=== PATIENT | female | born 1985 | race Caucasian/White ===

== ENCOUNTER 2024-11-14 21:14 | Emergency (ER) | payer MEDICAID, SELFPAY ==
--- OUTSIDE RECORDS SUMMARY | 2024-06-03 04:40 | XMS_ITS ---
Author Organization [facility] [employer] Address [address] [place] [address] Care Team Providers Care Lead Vulcanizing Operator Name Role Phone Domonique Ramirez Primary Care Provider [phone] Kaushal Bolton [phone] REASON FOR VISIT Discuss lab results Encounters Encounter Location Date Provider Diagnosis [address] [address] 06/03/2024 Domonique Ramirez Plan Of Treatment No Information Progress Notes * Kishor CARLOS RDOB:1985 (39 yo F)Acc No.[id number]:06/03/2024 UNLOCKED PROGRESS NOTE Progress Notes Patient: Levi Alexanderisaías Chacon Provider: RYAN Thompson :1985 A ge:38 Y S ex:Female Date:06/03/2024 Address:[address] [facility] Subjective: * Chief Complaints: * D iscuss lab results Plan: * Preventive Medicine: [facility] Preventive/Chronic Due : D iabetes: Due For Hemoglobin A1C: Y es Due for Eye Exam: Y es * Electronic signature of RYAN Ray on 11/14/2024 at 09:51 PM CDT Sign off status: Pending Visit Status: R /S (Rescheduled) * Provider: RYAN Thompson Date: 0 06/03/2024 Generated for Natan quinteros/Anca/Nicola on: 0 11/14/2024 09:51 PM CDT
--- OUTSIDE RECORDS SUMMARY | 2024-06-08 09:00 | XMS_ITS ---
Author Organization [facility] Address [address] [facility] [address] [place] [address] Care Team Providers Care Cardiovascular Tech Name Role Phone AshleyAmbikaa Primary Care Provider [phone] Kaushal Oliver [phone] REASON FOR VISIT review labs Medications Medication SIG (Take, Route, Frequency, Duration) Notes Start Date End Date Status Vitamin D 50 MCG (1999) Capsule 1 capsule Orally Once a day; Duration: 30 day(s) 04/04/2020 Not-Taking Vivitrol 380 MG Suspension Reconstituted Inject Intramuscular one time monthly at providers office; Duration: 28 days Clare Ramos LPN 01/07/2023 04:41:34 PM >PLEASE DELIVER TO [facility] ON Sat01-16-[address]PT WITH DR OLIVER ON Saturday01/22/23 XB# [id number] 01/07/2023 Not-Taking Folic Acid 1 MG Tablet 1 tablet Orally Once a day; Duration: 30 days 11/27/2023 Active Iron 325 (65 Fe) MG Tablet 1 tablet Orally Daily; Duration: 30 days 11/27/2023 Active Vitamin B-12 1,000 mcg Vial 1000 mcg - dispense 1 vial IM Monthly; Duration: 30 days 12/04/2017 Active Naloxone HCl 4 MG/10ML Solution as directed Injection x1 PRN 12/11/2022 Not-Taking Naltrexone HCl 50 MG Tablet 1 tablet Orally administered at in office appt with Dr Oliver on 01/22/23; Duration: 1 days Clare Ramos LPN 01/07/2023 04:41:34 PM >PLEASE DELIVER TO [facility] ON Sat01-16-[address]PT WITH DR OLIVER ON Saturday01/22/23 XB# [id number] 01/07/2023 Not-Taking Ondansetron 4 MG Tablet Disintegrating 1 tablet on the tongue and allow to dissolve Orally Once a day Not-Taking Robaxin 500 MG Tablet 1 tablet Orally every 8 hours as needed; Duration: 30 days 08/19/2023 Not-Taking Vitamin D 50 MCG (1999 UT) Tablet 1 tablet Orally Once a day; Duration: 30 days 05/14/2022 Not-Taking busPIRone HCl 7.5 MG Tablet 1 tablet Orally Twice a day; Duration: 30 days 09/13/2022 Not-Taking Cyanocobalamin 1000 MCG/ML Solution INJECT 1 ML INTRAMUSCULARLY ONCE EVERY MONTH; Duration: 28 Not-Taking Doxepin HCl 25 MG Capsule 2 capsules Orally At bedtime; Duration: 30 days 09/13/2022 Not-Taking Gabapentin 300 MG Capsule 1 capsule Orally three times daily for 7 days 12/23/2022 Not-Taking hydrOXYzine Pamoate 25 MG Capsule 1 capsule Orally every 8 hours on as needed basis; Duration: 30 days 09/13/2022 Not-Taking Methocarbamol 500 MG Tablet TAKE 1 TABLET BY MOUTH ONCE DAILY AT BEDTIME DIRECTED FOR MUSCLE RELAXATION PRN; Duration: 30 days Active Wadley & Syringes 1 Miscellaneous 1 needle and syringe for IM injection for vitamin b12 injections once a month; Duration: 30 days 12/20/2017 Active Suboxone 2-0.5 MG Film 1 film under the tongue and allow to dissolve Sublingual Once a day Active Buprenorphine HCl-Naloxone HCl 8-2 MG Film 1 film under the tongue and allow to dissolve Sublingual Once a day Held since 12/16/22 02/28/2023 Not-Taking Buprenorphine HCl-Naloxone HCl 8-2 MG Film 1 film under the tongue and allow to dissolve Sublingual Once a day 03/14/2023 Not-Taking BD Luer-Lashonda Syringe 25G X 5/8 3 ML Miscellaneous USE DIRECTED WITH B-12 INJECTION MONTHLY; Duration: 29 days Active Brixadi (Weekly) 8 MG/0.16ML Solution Prefilled Syringe 0.16 mL Subcutaneous Ac tive cloNIDine HCl 0.1 MG Tablet 1 tablet Orally Once a day Active hydrOXYzine HCl 25 MG Tablet 1 tablet as needed Orally Once a day Active lamoTRIgine 100 MG Tablet 2 tablets Orally Twice a day; Duration: 30 day(s) Active ARIPiprazole 15 MG Tablet 1 tablet Orally Once a day; Duration: 30 day(s) Active Social History Social History [facility] Comprehensive Health As sessment Social Info Question Answer Notes Household/Enviromental Risk Factors: Any Patient/Famil y Concerns : No Workplace Health Risk Factors : None Do you have any social/cultural characteristics? Socia l Characteristics: Yes Highest level of education: Associates Concerns with daily living situations: None Support from family/friends: Yes Participation in community activities: No Cultural Characteristics: No Communication Barriers Are: None Assessment of Health Literacy Understands how to take medication Yes Understands risks/side effects of medication Yes Understands Diagnosis and Treatment Plan Yes Is the patient able to afford their medication Y es Does patient have an Advanced Directive? No Date Last Health Assessment Completed : 05/09/19 Additional Details Category Social Info Options Details Self-Management Pap Testing No Patient had a hysterectomy Laboratory Testing Yes Covid-19 Vaccine Yes Pfizer-BioNTech Dose 1 Admnistered, Pfizer BioNTech Dose 2 Administred Encounters Encounter Location Date Provider Diagnosis [address] [address] 06/08/2024 Domonique Ramirez Plan Of Treatment No Information Progress Notes * Kishor CARLOS RDOB:1985 (39 yo F)Acc No.[id number]:06/08/2024 UNLOCKED PROGRESS NOTE Progress Notes Patient: Kishor Alexander Provider: RYAN Thompson :1985 A ge:38 Y S ex:Female Date:06/08/2024 Address:[address] [place], [place] [id number] Subjective: * Chief Complaints: * R eview labs * Social History: [facility] Comprehensive Health Assessment : D o you have any social/cultural characteristics? S ocial Characteristics: Y es H ighest level of education: A ssociates C oncerns with daily living situations: N one S upport from family/friends: Y es P articipation in community activities: N o C ultural Characteristics: N o C ommunication Barriers Are: N one Household/Enviromental Risk Factors A ny Patient/Family Concerns : N o W orkplace Health Risk Factors : N one Assessment of Health Literacy U nderstands how to take medication Y es U nderstands risks/side effects of medication?Yes U nderstands Diagnosis and Treatment Plan Y es I s the patient able to afford their medication Y es D oes patient have an Advanced Directive? N o D ate Last Health Assessment Completed : 0 05/08/2022 S elf-Management: C ovid-19 Vaccine: Yes, Pfizer-BioNTech Dose 1 Admnistered, Pfizer BioNTech Dose 2 Administred. Laboratory Testing: Yes. Pap Testing: No, Patient had a hysterectomy. * Medications: T akingARIPiprazole 15 MG Tablet 1 tablet Orally Once a day BD Luer-Lashonda Syringe 25G X 5/8 3 ML Miscellaneous USE DIRECTED WITH B-12 INJECTION MONTHLY Brixadi (Weekly) 8 MG/0.16ML Solution Prefilled Syringe 0.16 mL Subcutaneous cloNIDine HCl 0.1 MG Tablet 1 tablet Orally Once a day Folic Acid 1 MG Tablet 1 tablet Orally Once a day hydrOXYzine HCl 25 MG Tablet 1 tablet as needed Orally Once a day Iron 325 (65 Fe) MG Tablet 1 tablet Orally Daily lamoTRIgine 100 MG Tablet 2 tablets Orally Twice a day Methocarbamol 500 MG Tablet TAKE 1 TABLET BY MOUTH ONCE DAILY AT BEDTIME DIRECTED FOR MUSCLE RELAXATION PRN Wadley & Syringes 1 Miscellaneous 1 needle and syringe for IM injection for vitamin b12 injections once a month Suboxone 2-0.5 MG Film 1 film under the tongue and allow to dissolve Sublingual Once a day Vitamin B-12 1,000 mcg Vial 1000 mcg - dispense 1 vial IM Monthly Taking ARIPiprazole 15 MG Tablet 1 tablet Orally Once a day Taking BD Luer-Lashonda Syringe 25G X 5/8 3 ML Miscellaneous USE DIRECTED WITH B-12 INJECTION MONTHLY Taking Brixadi (Weekly) 8 MG/0.16ML Solution Prefilled Syringe 0.16 mL Subcutaneous Taking cloNIDine HCl 0.1 MG Tablet 1 tablet Orally Once a day Taking Folic Acid 1 MG Tablet 1 tablet Orally Once a day Taking hydrOXYzine HCl 25 MG Tablet 1 tablet as needed Orally Once a day Taking Iron 325 (65 Fe) MG Tablet 1 tablet Orally Daily Taking lamoTRIgine 100 MG Tablet 2 tablets Orally Twice a day Taking Methocarbamol 500 MG Tablet TAKE 1 TABLET BY MOUTH ONCE DAILY AT BEDTIME DIRECTED FOR MUSCLE RELAXATION PRN Taking Wadley & Syringes 1 Miscellaneous 1 needle and syringe for IM injection for vitamin b12 injections once a month Taking Suboxone 2-0.5 MG Film 1 film under the tongue and allow to dissolve Sublingual Once a day Taking Vitamin B-12 1,000 mcg Vial 1000 mcg - dispense 1 vial IM Monthly Not-TakingBuprenorphine HCl-Naloxone HCl 8-2 MG Film 1 film under the tongue and allow to dissolve Sublingual Once a day , Notes to Pharmacist: Held since 12/16/22Buprenorphine HCl-Naloxone HCl 8-2 MG Film 1 film under the tongue and allow to dissolve Sublingual Once a day busPIRone HCl 7.5 MG Tablet 1 tablet Orally Twice a day Cyanocobalamin 1000 MCG/ML Solution INJECT 1 ML INTRAMUSCULARLY ONCE EVERY MONTH Doxepin HCl 25 MG Capsule 2 capsules Orally At bedtime Gabapentin 300 MG Capsule 1 capsule Orally three times daily for 7 days hydrOXYzine Pamoate 25 MG Capsule 1 capsule Orally every 8 hours on as needed basis Naloxone HCl 4 MG/10ML Solution as directed Injection x1 PRN Naltrexone HCl 50 MG Tablet 1 tablet Orally administered at in office appt with Dr Oliver on 01/22/23 , Notes to Pharmacist: Clare Ramos LPN 01/07/2023 04:41:34 PM >PLEASE DELIVER TO [facility] ON Sat01-16-[address]PT WITH DR OLIVER ON Saturday01/22/23XB# [id number] 4 MG Tablet Disintegrating 1 tablet on the tongue and allow to dissolve Orally Once a day Robaxin 500 MG Tablet 1 tablet Orally every 8 hours as needed Vitamin D 50 MCG (2000 UT) Tablet 1 tablet Orally Once a day Vitamin D 50 MCG (2000 UT) Capsule 1 capsule Orally Once a day Vivitrol 380 MG Suspension Reconstituted Inject Intramuscular one time monthly at providers office , Notes to Pharmacist: Clare Ramos LPN 01/07/2023 04:41:34 PM >PLEASE DELIVER TO [facility] ON Sat01-16-[address]PT WITH [address] OLIVER ON Saturday01/22/23XB# [id number] Buprenorphine HCl-Naloxone HCl 8-2 MG Film 1 film under the tongue and allow to dissolve Sublingual Once a day , Notes to Pharmacist: Held since 12/16/22Not-Taking Buprenorphine HCl-Naloxone HCl 8-2 MG Film 1 film under the tongue and allow to dissolve Sublingual Once a day Not-Taking busPIRone HCl 7.5 MG Tablet 1 tablet Orally Twice a day Not-Taking Cyanocobalamin 1000 MCG/ML Solution INJECT 1 ML INTRAMUSCULARLY ONCE EVERY MONTH Not-Taking Doxepin HCl 25 MG Capsule 2 capsules Orally At bedtime Not-Taking Gabapentin 300 MG Capsule 1 capsule Orally three times daily for 7 days Not-Taking hydrOXYzine Pamoate 25 MG Capsule 1 capsule Orally every 8 hours on as needed basis Not-Taking Naloxone HCl 4 MG/10ML Solution as directed Injection x1 PRN Not-Taking Naltrexone HCl 50 MG Tablet 1 tablet Orally administered at in office appt with Dr Oliver on 01/22/23 , Notes to Pharmacist: Clare Ramos LPN 01/07/2023 04:41:34 PM >PLEASE DELIVER TO [facility] ON Sat01-16-[address]PT WITH DR OLIVER ON Saturday01/22/23XB# [id number] Ondansetron 4 MG Tablet Disintegrating 1 tablet on the tongue and allow to dissolve Orally Once a day Not-Taking Robaxin 500 MG Tablet 1 tablet Orally every 8 hours as needed Not- Taking Vitamin D 50 MCG (2000 UT) Tablet 1 tablet Orally Once a day Not-Taking Vitamin D 50 MCG (2000 UT) Capsule 1 capsule Orally Once a day Not-Taking Vivitrol 380 MG Suspension Reconstituted Inject Intramuscular one time monthly at providers office , Notes to Pharmacist: Clare Ramos LPN 01/07/2023 04:41:34 PM >PLEASE DELIVER TO [facility] ON Sat01-16-[address] APPT WITH DR OLIVER ON Saturday01/22/23XB# [id number] Plan: * Preventive Medicine: Counseling: C are goal follow-up plan: Exercise Counseling Provided- Y es Nutrition/Dietary Counseling provided?Yes BMI management provided Y es Above Normal BMI Follow-up G iving encouragement to exercise Oral health education provided : Y es Date : * Electronic signature of RYAN Ray on 11/14/2024 at 09:51 PM CDT Sign off status: Pending Visit Status: N /S (No-Show) * Provider: RYAN Thompson Date: 0 06/08/2024 Generated for Natan Warner on: 0 11/14/2024 09:51 PM CDT
--- OUTSIDE RECORDS SUMMARY | 2024-07-31 08:20 | XMS_ITS ---
Author Organization [facility] Address [address] [place] [address] Care Team Providers Care Interior Horticulturist Name Role Phone Domonique Ramirez Primary Care Provider Kaushal Bolton Unavailable [phone] Isabella Busby Unavailable [phone] REASON FOR VISIT med refFortino olson pt Encounters Encounter Location Date Provider Diagnosis [address] [address] 07/31/2024 Isabella Busby Plan Of Treatment No Information Progress Notes * Kishor CARLOS RDOB:1985 (39 yo F)Acc No.[id number]:07/31/2024 UNLOCKED PROGRESS NOTE Progress Notes Patient: Kishor Alexander Provider: Amanda Busby :1985 A ge:38 Y S ex:Female Date:07/31/2024 Address:[address] [facility] Pcp:Domonique Ramirez Subjective: * Chief Complaints: * m ed refillsFortino pt * Electronic signature of RYAN Romano on 11/14/2024 at 09:50 PM CDT Sign off status: Pending Visit Status: N /S (No-Show) * Provider: Amanda Busby Date: 0 07/31/2024 Generated for Natan quinteros/Anca/Marinaitting on: 0 11/14/2024 09:50 PM CDT
--- OUTSIDE RECORDS SUMMARY | 2024-08-05 04:00 | XMS_ITS ---
Author Organization [facility] [employer] Address [address] [facility] [place] [address] Care Team Providers Care Pile Driving Technician Name Role Phone Domonique Ramirez Primary Care Provider Kaushal Oliver [phone] REASON FOR VISIT Patient presents for a f/up , discuss labs, B12 shot Medications Medication SIG (Take, Route, Frequency, Duration) Notes Start Date End Date Status Vitamin D 50 MCG (1999) Capsule 1 capsule Orally Once a day; Duration: 30 day(s) 04/04/2020 Not-Taking Vivitrol 380 MG Suspension Reconstituted Inject Intramuscular one time monthly at providers office; Duration: 28 days Clare Ramos LPN 01/07/2023 04:41:34 PM >PLEASE DELIVER TO ER ON Sat01-16-23 FOR UPCOMING APPT WITH DR OLIVER ON Saturday01/22/23 XB# [id number] 01/07/2023 Not-Taking Folic Acid 1 MG Tablet 1 tablet Orally Once a day; Duration: 30 days 11/27/2023 Active Iron 325 (65 Fe) MG Tablet 1 tablet Orally Daily; Duration: 30 days 11/27/2023 Active Vitamin B-12 1,000 mcg Vial 1000 mcg - dispense 1 vial IM Monthly; Duration: 30 days 12/04/2017 Active Naltrexone HCl 50 MG Tablet 1 tablet Orally administered at in office appt with Dr Oliver on 01/22/23; Duration: 1 days Clare Ramos LPN 01/07/2023 04:41:34 PM >PLEASE DELIVER TO [facility] ON Sat01-16-[address]OM[address] APPT WITH DR OLIVER ON Saturday01/22/23 XB# [id number] 01/07/2023 Not-Taking Ondansetron 4 MG Tablet Disintegrating 1 tablet on the tongue and allow to dissolve Orally Once a day Not-Taking Robaxin 500 MG Tablet 1 tablet Orally every 8 hours as needed; Duration: 30 days 08/19/2023 Not-Taking Vitamin D 50 MCG (2000 UT) Tablet 1 tablet Orally Once a day; Duration: 30 days 05/14/2022 Not-Taking Naloxone HCl 4 MG/10ML Solution as directed Injection x1 PRN 12/11/2022 Not-Taking busPIRone HCl 7.5 MG Tablet 1 [...] MUSCLE RELAXATION PRN; Duration: 30 days Active Shacklefords & Syringes 1 Miscellaneous 1 needle and [...] 30 day(s) Active Social History Social History Additional Details Category Social Info Options Details Self-Management Pap Testing No Patient had a hysterectomy Laboratory Testing Yes Encounters Encounter Location Date Provider Diagnosis [address] [facility] [place] [address] 08/05/2024 Domonique Ramirez Plan Of Treatment No Information Progress Notes * Kishor CARLOS RDOB:1985 (39 yo F)Acc No.[id number]:08/05/2024 UNLOCKED PROGRESS NOTE Progress Notes Patient: Kishor Alexander Provider: RYAN Thompson :1985 A ge:38 Y S ex:Female Date:08/05/2024 Address:[address] [place], [place] [id number] Subjective: * Chief Complaints: * P atient presents for a f/up , discuss labs, B12 shot * Social History: S elf-Management: L aboratory Testing: Yes. Pap Testing: No, Patient had [...] AT BEDTIME DIRECTED FOR MUSCLE RELAXATION PRN Shacklefords & Syringes 1 Miscellaneous 1 needle and [...] BEDTIME DIRECTED FOR MUSCLE RELAXATION PRN Taking Shacklefords & Syringes 1 Miscellaneous 1 needle and [...] LPN 01/07/2023 04:41:34 PM >PLEASE DELIVER TO [facility] ON Sat01-16-[address] APPT WITH DR OLIVER ON Saturday01/22/23XB# [id number] 4 MG Tablet Disintegrating 1 tablet on the tongue and allow to dissolve Orally Once a day Robaxin 500 MG Tablet 1 tablet Orally every 8 hours as needed Vitamin D 50 MCG (1999 UT) Tablet 1 tablet Orally Once a day Vitamin D 50 MCG (1999 UT) Capsule 1 capsule Orally Once a day Vivitrol 380 MG Suspension Reconstituted Inject Intramuscular one time monthly at providers office , Notes to Pharmacist: Clare Ramos LPN 01/07/2023 04:41:34 PM >PLEASE DELIVER TO [facility] ON Sat01-16-[address] APPT WITH [address] OLIVER ON Saturday01/22/23XB# [id number] Buprenorphine HCl-Naloxone HCl 8-2 MG Film 1 [...] LPN 01/07/2023 04:41:34 PM >PLEASE DELIVER TO [facility] ON Sat01-16-[address] APPT WITH [address] OLIVER ON Saturday01/22/23XB# [id number] Ondansetron 4 MG Tablet Disintegrating 1 tablet on the tongue and allow to dissolve Orally Once a day Not-Taking Robaxin 500 MG Tablet 1 tablet Orally every 8 hours as needed Not- Taking Vitamin D 50 MCG (2000 UT) Tablet 1 tablet Orally Once a day Not-Taking Vitamin D 50 MCG (1999 UT) Capsule 1 capsule Orally Once a day Not-Taking Vivitrol 380 MG Suspension Reconstituted Inject Intramuscular one time monthly at providers office , Notes to Pharmacist: Clare Ramos LPN 01/07/2023 04:41:34 PM >PLEASE DELIVER TO ER ON Sat01-16-23 FOR UPCOMING APPT WITH DR OLIVER ON Saturday01/22/23XB# [id number] Plan: * Preventive Medicine: Counseling: C are [...] /S (Rescheduled) * Provider: RYAN Thompson Date: 08/05/2024 Generated for Natan Saravia/Nicola on: 0 11/14/2024 09:51 PM CDT
--- OUTSIDE RECORDS SUMMARY | 2024-10-01 06:00 | XMS_ITS ---
Author Organization [facility] Address [address] [place] [address] Care Team Providers Care Legislative Analyst Name Role Phone Mary Kay Cueva Primary Care Provider Ivelisse Roper [phone] REASON FOR VISIT Brixadi injection Encounters Encounter Location Date Provider Diagnosis [address] [place] [address] 10/01/2024 Ivelisse Roper Plan Of Treatment No Information Progress Notes * Carmine CARLOSOB:[birth year] (39 yo F)Acc No.[id number]:10/01/2024 UNLOCKED PROGRESS NOTE Patient: Kishor LEACH Provider: ABHINAV Aragon, DIRECTOR OF MARKETING [employer] PERFORMANCE ADS, RACE AND SPORTS BOOK WRITER-C :1985 A ge:39 Y S ex:Female Date:10/01/2024 Address:[address] [facility] Pcp:Mary Kay Cueva Subjective: * Chief Complaints: * 1 . Brixadi injection. * Medical History: Objective: * Vitals: Assessment: Plan: * Treatment: * Care Plan Details* * Electronic signature of Felisha Roper APRN, [id number] on 11/14/2024 at 09:50 PM CDT Sign off status: Pending * Provider: Denisha Roper, MSN, DIRECTOR OF MARKETING [employer] PERFOR[employer]CE ADS, RACE AND SPORTS BOOK WRITER-C Date: 0 10/01/2024 Generated for Natan quinteros/Anca/Nicola on: 0 11/14/2024 09:50 PM CDT
--- OUTSIDE RECORDS SUMMARY | 2024-10-06 09:20 | XMS_ITS ---
Author Organization [facility] Address [address] [place] [address] Care Team Providers Care Supervisor Of Operations Name Role Phone Mary Kay Cueva Primary Care Provider Ivelisse Roper Unavailable [phone] REASON FOR VISIT Injection Medications Medication SIG (Take, Route, Frequency, Duration) Notes Start Date End Date Status ARIPiprazole 30 MG 1 tablet Orally Once a day; Duration: 30 days Active lamoTRIgine 25 MG 2 tablets Orally Onc e daily; Duration: 30 days Active cloNIDine HCl 0.1 MG 1 tablet Orally Twice daily; Duration: 30 days As needed Active Sertraline HCl 100 MG 1.5 tablet Orally Once a day; Duration: 30 days Active clonazePAM 0.5 MG 0.5 - 1 tablet Orally Once a day; Duration: 30 days As needed Changed to state: #10 for 30 days due to PRN status, thank you! 09/08/2024 Active Doxepin HCl 10 MG 1 capsule at bedtime Orally Once a day; Duration: 30 days Active Zepbound 2.5 MG/0.5ML 0.5 mL Subcutaneou s; Duration: 30 day(s) Active Brixadi 128 MG/0.36ML 0.36 mL Subcutaneo us every 28 days 08/14/2024 Active Methocarbamol 750 MG TAKE 1 TABLET BY MOUTH EVERY 4 HOURS; Duration: 30 Active cloNIDine HCl 0.1 MG 1 tablet Orally Twi ce daily; Duration: 30 days Active Encounters Encounter Location Date Provider Diagnosis [facility] [address] [place] [address] 10/06/2024 Ivelisse Roper Plan Of Treatment No Information Progress Notes * Carmine CARLOSOB:[birth year] (39 yo F)Acc No.[id number]:10/06/2024 UNLOCKED PROGRESS NOTE Patient: Kishor LEACH Provider: Denisha Roper, MSN, MANAGER HEAVY EQUIPMENT, WARRANTY CLERK-C :1985 A ge:39 Y S ex:Female Date:10/06/2024 Address:[address] [place] [facility] Pcp:Mary Kay Cueva Subjective: * Chief Complaints: * 1 . Injection. * Medical History: * Medications: T aking Brixadi 128 MG/0.36ML Solution Prefilled Syringe 0.36 mL Subcutaneous every 28 days , Taking cloNIDine HCl 0.1 MG Tablet 1 tablet Orally Twice daily , Taking Methocarbamol 750 MG Tablet TAKE 1 TABLET BY MOUTH EVERY 4 HOURS , Taking Zepbound 2.5 MG/0.5ML Solution Auto-injector 0.5 mL Subcutaneous , Taking Doxepin HCl 10 MG Capsule 1 capsule at bedtime Orally Once a day , Taking lamoTRIgine 25 MG Tablet 2 tablets Orally Once daily , Taking ARIPiprazole 30 MG Tablet 1 tablet Orally Once a day , Taking Sertraline HCl 100 MG Tablet 1.5 tablet Orally Once a day , Taking cloNIDine HCl 0.1 MG Tablet 1 tablet Orally Twice daily As needed, Taking clonazePAM 0.5 MG Tablet 0.5 - 1 tablet Orally Once a day As needed, Notes to Pharmacist: Changed to state: #10 for 30 days due to PRN status, thank you! Objective: * Vitals: Assessment: Plan: * Treatment: * Care Plan Details* * Electronic signature of Felisha Roper APRN, [id number] on 11/14/2024 at 09:50 PM CDT Sign off status: Pending * Provider: Denisha Roper, MSN, MANAGER HEAVY EQUIPMENT, WARRANTY CLERK-C Date: 0 10/06/2024 Generated for Natan quinteros/Anca/Nicola on: 0 11/14/2024 09:50 PM CDT
[2024-11-14 21:26] VITALS: BP 125/63; PULSE 65; RESP 18; TEMP 36.7; O2SAT 100
--- NOTE | 2024-11-14 21:28 | ED.GENADULT ---
HPI - General Adult General Chief complaint: Recheck/Abnormal Lab/Rx Stated complaint: R foot injury, seen at , needs pain meds Time Seen by Provider: 11/14/24 21:22 History of Present Illness HPI narrative: Patient is a 39-year-old female who presents emergency department this evening complaining of right foot pain. Patient states that on November 10 she fractured her right 5th metatarsal and was placed in a boot. 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 States that she is in a lot of pain and is requesting something stronger for pain. Related Data Allergies Allergy/AdvReac Type Severity Reaction Status Date / Time No Known Allergies Allergy Verified 11/14/24 21:29 Review of Systems Review of Systems: All systems are reviewed and are negative unless stated otherwise in the HPI. Exam Narrative: General: Alert, awake, afebrile, in no acute distress. HEENT: PERRL, no rhinorrhea, no post nasal drip, oropharynx clear. Neck: Trachea midline, no JVD, no lymphadenopathy. Cardiovascular: Regular rate and rhythm, no murmurs, rubs or gallops, no peripheral edema. Respiratory: Clear to auscultation bilaterally, no tachypnea, no wheezing, no rhonchi, no rubs, no respiratory distress. Abdomen: Soft, nontender, nondistended, no rebound, no guarding, no peritoneal signs. Musculoskeletal: No joint swelling or deformity, normal muscle tone, right lower extremity in splint. Skin: No rashes or petechia, no signs of infection. Psychiatric: Alert and oriented, normal behavior and judgment for situation. Neurological: Alert and oriented to person, place, and time. Follows all commands. No focal deficits, speech is clear and fluent. Course Vital Signs Vital signs: Vital Signs Temperature 98.0 F 11/14/24 21: Pulse Rate 65 11/14/24 21: Respiratory Rate 11/14/24 21: Blood Pressure 125/63 11/14/24 21: Pulse Oximetry 100 11/14/24 21:26 Oxygen Delivery Room Air 11/14/24 21:26 Temperature 98.0 F 11/14/24 21: Pulse Rate 65 11/14/24 21:26 Respiratory Rate 18 11/14/24 21:26 Blood Pressure 125/63 11/14/24 21:26 Pulse Oximetry 100 11/14/24 21:26 Oxygen Delivery Room Air 11/14/24 21:26 Medical Decision Making MDM Narrative Medical decision making narrative: The patient was evaluated by myself in the emergency department. History is obtained from patient who is an independent historian and physical exam was performed. External medical records were reviewed at this time. Patient was administered an oral [place] 5-325 mg. Differential diagnosis considerations include fractures, dislocations, musculoskeletal strain. Comorbidities impacting this visit include recent right foot fracture. I have evaluated and discussed social determinants of health with the patient that could potentially impact subsequent diagnosis and treatment plans. On repeat assessment of the patient, reevaluation revealed that the patient is doing well and is in no acute distress. Patient symptoms have improved since she arrived to our emergency department. Repeat vital signs were all reviewed and noted to be stable. Differential diagnosis and treatment plan were discussed with the patient at bedside. Patient agrees with discussion and after shared medical decision making agrees with discharge. All questions were answered to the patient's satisfaction. Patient will follow up with Orthopedics in 3-5 days. Patient was provided with strict return precautions and instructed to return to the emergency department if any new or worsening symptoms develop. The patient was discharged in stable condition. Vital Signs Vital Signs: Vital Signs Temperature 98.0 F 11/14/24 21:26 Pulse Rate 65 11/14/24 21:26 Respiratory Rate 18 11/14/24 21:26 Blood Pressure 125/63 11/14/24 21:26 Pulse Oximetry 100 11/14/24 21:26 Oxygen Delivery Room Air 11/14/24 21:26 Temperature 98.0 F 11/14/24 21:26 Pulse Rate 65 11/14/24 21:26 Respiratory Rate 18 11/14/24 21:26 Blood Pressure 125/63 11/14/24 21:26 Pulse Oximetry 100 11/14/24 21:26 Oxygen Delivery Room Air 11/14/24 21:26 Discharge Plan Discharge Clinical Impression: Foot fracture, right Patient Disposition: Home Condition: Improved Instructions: Antibiotic Form, Foot Fracture in Adults (ED) Additional Instructions: Please follow-up with your orthopedic surgeon as scheduled for your upcoming appointment next week. Use the prescribed pain medications as needed. Return to ED if any new or worsening symptoms develop. Patient Language: O[place]i Prescriptions: New hydrocodone-acetaminophen 5-325 mg tablet 1 tablet PO Q8H PRN (Reason: pain) Qty: 10 0RF Follow-up/Referrals: PHYSICIAN,INFORMATION TECHNOLOGY AUDITOR [Primary Care Provider, Internal Medicine] - 3 Days Time of Disposition: 21:30
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
--- OUTSIDE RECORDS SUMMARY | 2024-11-14 21:51 | XMS_ITS | Clinical Summary ---
Author Organization [facility] Address [address] [place] [address] Care Team Providers Care [employer] Farmer Name Role Phone Daniel Swanson MD Unavailable [phone] No, Physician Primary Care Provider Allergies Active Allergy Reactions Criticality Noted Date Comments Fexofenadine-Pseudoephedrin e Swelling Medium 12/17/2022 Throat swelling Chlorhexidine Gluconate Itching,Rash High 03/25/2023 CHG wipes Sulfamethoxazole-Trimethopr im Hives Medium 12/17/2022 Long time since use Blueberry Hives Medium 12/17/2022 Codeine Hives Medium 12/17/2022 Sulfa Rash Medium 12/17/2022 Medications ARIPiprazole (ABILIFY) 30 mg tablet Take 0.5 tablets (15 mg total) by mouth daily 11/20/19 23 Active buprenorphine-nalo xone (SUBOXONE) 8-2 mg per film 12/12/19 23 Active busPIRone (BUSPAR) 7.5 mg tablet 09/18/19 23 Active clonazePAM (KlonoPIN) 1 mg tablet TAKE 1 TABLET BY MOUTH ONCE DAILY NEEDED FOR ANXIETY 11/27/19 23 Active doxepin (SINEquan) 25 mg capsule 09/19/19 23 Active lamoTRIgine (LaMICtal) 150 mg tablet TAKE 1 TABLET BY MOUTH TWICE DAILY DOSE INCREASE 08/24/22 09/11/19 Active methocarbamoL (ROBAXIN) 750 mg tablet 11/27/19 Active sertraline (ZOLOFT) 100 mg tablet TAKE 2 TABLETS BY MOUTH ONCE DAILY IN THE MORNING FOR ANXIETY AND FOR DEPRESSION 11/20/19 Active acetaminophen 500 mg capsule Take 2 capsules (1,000 mg total) by mouth every 6 (six) hours 30 tablet 12/23/19 Active gabapentin (NEURONTIN) 300 mg capsuleIndications :Postoperative Acute Pain Take 1 capsule (300 mg total) by mouth 3 (three) times a day for 7 days 21 capsule 12/23/19 Active Additional Information Patient not taking.Reported on 02/01/2023 lidocaine (LIDODERM) 5 % Place 1 patch on the skin daily Remove & discard patch within 12 hours or as directed by MD. Do not apply over incision, use next to it 12/23/19 Active Additional Information Patient not taking.Reported on 02/01/2023 ondansetron ODT (ZOFRAN-ODT) 4 mg disintegrating tabletIndications: Nausea and Vomiting Take 1 tablet (4 mg total) by mouth every 6 (six) hours as needed for nausea or vomiting 20 tablet 12/23/19 Active Additional Information Patient not taking.Reported on 02/01/2023 oxyCODONE (ROXICODONE) 5 mg immediate release tabletIndications: Pain Take 1 tablet (5 mg total) by mouth every 4 (four) hours as needed for pain 25 tablet 12/23/19 Active Additional Information Patient not taking.Reported on 02/01/2023 [id number] cyanocobalamin, Vitamin B-12, ([id number], Use [employer],) 1,000 mcg/mL intramuscular injection Inject into the muscle as instructed once Active omeprazole (PriLOSEC) 40 mg capsuleIndications :Treatment of Non-Bleeding Gastric Disorder Take 1 capsule (40 mg total) by mouth daily Take 30 minutes before breakfast daily 30 capsule 3 02/02/20 Active Active Problems Problem Noted Date Diagnosed Date History of biliary duct stent placement 02/02/20 Post-operative state 01/01/2023 Acute cholecystitis 12/17/2022 Choledocholithiasis 12/17/2022 Bipolar disorder 12/17/2022 Surgical History Surgery Date Site/Laterality Comments GASTRIC BYPASS 02/18/2002 - 02/17/2003 HYSTERECTOMY Per patient uterus and cervix were removed, unsure if tubes were removed. Ovaries remain. ERCP CHOLECYSTECTOMY SECTION 02/18/2010 - 02/17/2011 UPPER GASTROINTESTINAL ENDOSCOPY Medical History Medical History Date Comments Bipolar 1 disorder (HCC) Anemia Cholelithiasis Depression Arthritis Cervical cancer (HCC) History of transfusion Family History Medical History Relation Name Comments Colon cancer Maternal Grandmother Relation Name Status Comments Maternal Grandmother Social History Tobacco Use Types Packs/Day Years Used Date Smoking Tobacco: Never Passive Smoke Exposure: Never Smokeless Tobacco: Never Tobacco Cessation:Counseling Given: Not Answered Social Connection and Isolation Panel Answer Date Recorded In a typical week, how many times do you talk on the phone with family, friends, or neighbors? More than three times a week 12/17/2022 How often do you get togethe r with friends or relatives? More than three times a week 12/17/2022 How often do you attend [facility] or sabianist services? Never 12/17/2022 Do you belong to any clubs o r organizations such as buddhism groups, unions, fraternal or athletic groups, or school groups? No 12/17/2022 How often do you attend meet ings of the clubs or organizations you belong to? Never 12/17/2022 Are you , , di vorced, , never , or living with a partner? 12/17/2022 AUDIT-C Answer Date Recorded Q1: How often do you have a drink containing alc ohol? Monthly or less 03/25/2023 Q2: How many drinks containi ng alcohol do you have on a typical day when you are drinking? 1 or 2 03/25/2023 Q3: How often do you have si x or more drinks on one occasion? Never 03/25/2023 Overall Financial Resource Strain (CARDIA) Answe r Date Recorded How hard is it for you to pa y for the very basics like food, housing, medical care, and heating? Not very hard 12/17/2022 Hunger Vital Sign Answer Date Recorded Within the past 12 months, y ou worried that your food would run out before you got the money to buy more. Never true 12/18/19 23 Within the past 12 months, t he food you bought just didn't last and you didn't have money to get more. Never true 12/17/2022 PRAPARE - Transportation Answer Date Re corded In the past 12 months, has l ack of transportation kept you from medical appointments or from getting medications? No 11/20 In the past 12 months, has l ack of transportation kept you from meetings, work, or from getting things needed for daily living? No 12/17/2022 Housing Stability Vital Sign Answer Ben e Recorded In the last 12 months, was t here a time when you were not able to pay the mortgage or rent on time? No 12/17/2022 In the last 12 months, how many places have you lived? 1 12/17/2022 In the last 12 months, was t here a time when you did not have a steady place to sleep or slept in a long-term (including now)? No 12/17/2022 Personal Safety Answer Date Recorded Have you ever been in or are you currently in a harmful physical or emotional relationship or is someone making you feel afraid or unsafe? Denies 03/25/2023 Comments No Sex and Gender Information Value Date Recorded Sex Assigned at Not on file Legal Sex Female 2:01 PM CDT Gender Identity Not on file Sexual Orientation Not on file Obstetrics History Last Filed Vital Signs Vital Sign Reading Time Taken Comments Blood Pressure 117/74 03/25/2023 10:00 AM REPAIR MANAGER Pulse 78 03/25/2023 10:00 AM REPAIR MANAGER Temperature 36.2 C (97.2 F) 03/25/2023 7:50 AM REPAIR MANAGER Respiratory Rate 18 03/25/2023 10:00 AM REPAIR MANAGER Oxygen Saturation 100% 03/25/2023 10:00 AM REPAIR MANAGER Inhaled Oxygen Concentration - - Weight 113.4 kg (250 lb) 03/25/2023 7:54 AM REPAIR MANAGER Height 165.1 cm (5' 5) 03/25/2023 7:54 AM REPAIR MANAGER Body Mass Index 41.6 03/25/2023 7:54 AM REPAIR MANAGER Plan of Treatment Health Maintenance Due Date Last Done Comments Breast Cancer Screening-Mammogram 1984 Depression Screening 1984 Hepatitis C Screening 1984 DTaP/Tdap/Td Vaccine (1 - Tdap) 08/11/1995 Varicella Vaccines (1 of 2 - 13+ 2-dose series) 1997 Regular Well Visit/Exam 18-64 2002 HPV Vaccines (1 - 3-dose SCDM series) 08/11/2011 Influenza Vaccine (#1) 2024 , 12/13/2021, 12/15/2019, Additional history exists Hepatitis B Screening Completed 12/04/2000, 001 Pneumococcal vaccine <65 Aged Out No longer eligible based on patient's age to complete this topic Medical Devices Explanted Type Area Teller Device Identifier Shelf Expiration Date Model / Serial / Lot [employer] Wilma Axios 10 X 20 Stent Delivery System [id number] - [id number] Implanted:Qty: 1 on 12/17/2022 by Gareth Cheek MD at [facility] Explanted:Qty: 1 on 03/25/2023 by Gareth Cheek MD at [facility] Stent N/A: Stomach [employer] Wilma 10/17/2023 [id number] / / [id number] Description:EDGE procedure Conmed Wilma Stent Biliary Rapid Exchange Self Expanding Viabil [id number] Nitinol [id number] - [id number] - [id number] Implanted:Qty: 1 on 12/17/2022 by Gareth Cheek MD at [facility] Explanted:Qty: 1 on 03/25/2023 by Gareth Cheek MD at [facility] Stent N/A: Bile Duct Conmed Wilma 05/05/2025 [id number] / [id number] / Insurance IDPA IDPA Advance Directives For more information, please contact: [phone] * Full Code (Latest Code Status on File) Date Activated Date Inactivated Comments 03/25/2023 7:49 AM 03/25/2023 2:26 PM * Full Code Date Activated Date Inactivated Comments 12/17/2022 3:33 AM 12/23/2022 4:41 PM Care Teams [employer] Relationship Specialty Start Date End Date No, Physician PCP - General 12/25/22 Daniel Swanson MD Surgeon General Surgery 12/22/22
--- OUTSIDE RECORDS SUMMARY | 2024-11-14 21:51 | XMS_ITS | Patient Health Record ---
Author Organization [facility] Address [address] [place] [address] Care Team Providers Care Meal Cooker Name Role Phone Mary Kay Cueva Primary Care Provider Ivelisse Roper Unavailable [phone] Perez Luna Unavailable [phone] Xochitl Ceballos Unavailable [phone] Allergies Allergen (clinical drug ingredient) Drug/Non Drug Allergy documented on EMR Reaction Allergy Type Onset Date Status fexofenadine / pseudoephedrine Iris-D 12 Hour Unknown Drug Allergy Active sulfamethoxazole / trimethoprim Bactrim Unknown Drug Allergy Active Tylenol with Codeine #3 Unknown Drug Allergy Active Substance with sulfonamide structure and antibacterial mechanism of action (substance) Sulfa Antibiotics Unknown Drug Allergy A ctive Results Component Value Reference Range Notes 12 Panel Urine Drug Screen Reviewed date:05/13/2024 11:05:40 AM Interpretation: Performing Lab: Notes/Report: THC neg GAGAN neg MOP (OPI) neg AMP neg MET neg BAR neg BZO POS MDMA neg MTD neg OXY neg PCP neg BUP POS 12 Panel Urine Drug Screen Reviewed date:04/14/2024 01:49:41 PM Interpretation: Performing Lab: Notes/Report: THC neg GAGAN neg MOP (OPI) neg AMP neg MET neg BAR neg BZO neg MDMA neg MTD neg OXY neg PCP neg BUP POS 12 Panel Urine Drug Screen Reviewed date:02/06/2024 02:31:07 PM Interpretation: Performing Lab: Notes/Report: THC neg GAGAN neg MOP (OPI) neg AMP neg MET neg BAR neg BZO neg MDMA neg MTD neg OXY neg PCP neg BUP POS 12 Panel Urine Drug Screen Reviewed date:03/12/2024 08:35:50 AM Interpretation: Performing Lab: Notes/Report: THC neg GAGAN neg MOP (OPI) neg AMP neg MET neg BAR neg BZO neg MDMA neg MTD neg OXY neg PCP neg BUP pos 14 Panel Urine Drug Screen Reviewed date:10/06/2024 03:20:02 PM Interpretation: Performing Lab: Notes/Report: THC POS GAGAN neg MOP (OPI) neg AMP neg MET neg BAR neg BZO POS MDMA neg MTD neg OXY neg PCP neg BUP POS TCA neg FTY neg 12 Panel Urine Drug Screen Reviewed date:11/28/2023 03:33:48 PM Interpretation: Performing Lab: Notes/Report: THC POS GAGAN neg MOP (OPI) neg AMP neg MET neg BAR neg BZO neg MDMA neg MTD neg OXY neg PCP neg BUP POS 12 Panel Urine Drug Screen Reviewed date:09/04/2024 11:14:50 AM Interpretation: Performing Lab: Notes/Report: THC pos GAGAN neg MOP (OPI) neg AMP neg MET neg BAR neg BZO neg MDMA neg MTD neg OXY neg PCP neg BUP pos 12 Panel Urine Drug Screen Reviewed date:06/17/2024 03:20:46 PM Interpretation: Performing Lab: Notes/Report: THC neg GAGAN neg MOP (OPI) neg AMP neg MET neg BAR neg BZO pos MDMA neg MTD neg OXY neg PCP neg BUP pos 14 Panel Urine Drug Screen Reviewed date:11/05/2024 11:54:20 AM Interpretation: Performing Lab: Notes/Report: THC pos GAGAN neg MOP (OPI) neg AMP neg MET neg BAR neg BZO pos MDMA neg MTD neg OXY neg PCP neg BUP pos TCA neg FTY neg 12 Panel Urine Drug Screen Reviewed date:12/27/2023 04:03:36 PM Interpretation: Performing Lab: Notes/Report: THC POS GAGAN neg MOP (OPI) neg AMP neg MET neg BAR neg BZO neg MDMA neg MTD neg OXY neg PCP neg BUP POS Reason For Referral No Information Medications Medication SIG (Take, Route, Frequency, Duration) Notes Start Date End Date Status clonazePAM 0.5 MG 0.5 - 1 tablet Orally Once a day; Duration: 30 days As needed #15 for 30 days due to PRN status, thank you. 12/01/2024 Active Methocarbamol 750 MG TAKE 1 TABLET BY [facility] EVERY 4 HOURS; Duration: 30 Active Doxepin HCl 10 MG 1 capsule at bedtime Orally Once a day; Duration: 30 days Active Doxepin HCl 10 MG 1 capsule at bedtime Orally Once a day; Duration: 9 days Active cloNIDine HCl 0.1 MG 1 tablet Orally Twi ce daily; Duration: 30 days Active lamoTRIgine 25 MG 2 tablets Orally Onc e daily; Duration: 9 days Active Sertraline HCl 100 MG 1.5 tablet Orally Once a day; Duration: 8 days Active Sertraline HCl 100 MG 1.5 tablet Orally Once a day; Duration: 30 days Active cloNIDine HCl 0.1 MG 1 tablet Orally Twice daily; Duration: 30 days As needed Active lamoTRIgine 25 MG 2 tablets Orally Onc e daily; Duration: 30 days Active Brixadi 128 MG/0.36ML 0.36 mL Subcutaneo us every 28 days 11/04/2024 Active ARIPiprazole 30 MG 1 tablet Orally Once a day; Duration: 30 days Active Ibuprofen 800 MG 1 tablet with food o r milk as needed Orally every 8 hrs; Duration: 30 days 11/04/2024 Active Social History Tobacco Use: Social History Observation Description Date Details (start date - stop date) Current Smoker 02/18/2022 - NA Tobacco Control (Standard) Question Answer Notes Tobacco use: Current smoker When did you start smoking? 02/18/2022 How often do you smoke cigarettes? Every day How many cigarettes a day do you smoke? 5 or les s How soon after you wake up d o you smoke your first cigarette? Within 5 minutes Are you interested in quitting? Thinking about q uitting When did you start smoking? 02/18/2023 Additional Findings: Tobacco user e-cigarette Additional Findings: Tobacco non-user Ex-cigaret te smoker AUDIT-C (Standard) Question Answer Notes Did you have a drink containing alcohol in the p ast year? No Points 0 Interpretation Negative Problems Problem Type SNOMED Code ICD Code Onset Dates Problem Status W/U Status Risk Notes Problem Tobacco user (982254170) Nicotine dependence, unspecified, uncomplicated (F17.200) Active confirmed Problem Generalized anxiety disorder (04066237) Generalized anxiety disorder (F41.1) Active confirmed Problem Obesity (763711207) Obesity (E66.9) Active confirmed Problem Bipolar 1 disorder (629688058) Bipolar 1 disorder (F31.9) Active confirmed Problem Overweight (546180807) Over weight (E66.3) Active confirmed Problem Sleep disturbance (66713265) Sleep disturbance, unspecified (G47.9) Active confirmed Problem Tobacco use (229185987) Tobacco use disorder (F17.200) Active confirmed Problem Opioid use disorder (0933952751) Opioid use disorder (F11.99) Active confirmed Vital Signs Heart Rate 65 /min 11/04/2024 Temperature 98.1 degrees Fahrenheit 10/06/2024 Respiratory Rate 18 /min 11/04/2024 Blood pressure diastolic 72 mm Hg 11/04/2024 Oximetry 98 % 11/04/2024 Height 65.5 in 11/04/2024 Blood pressure systolic 110 mm Hg 11/04/2024 Weight 288 lbs 11/04/2024 BMI 47.19 kg/m2 11/04/2024 Encounters Encounter Location Date Provider Diagnosis [facility] [place] [address] 11/28/2023 Jenia Heavens Opioid use disorder F11.99 ; Obesity E66.9 and Tobacco use disorder F17.200 [place] [address] [address] [facility] [address] 12/27/2023 Jenia Heavens Opioid use disorder F11.99 ; Obesity E66.9 and Tobacco use disorder F17.200 [address] [place] [address] [place] [address] 02/06/2024 Jenia Heavens Opioid use disorder F11.99 ; Obesity E66.9 and Tobacco use disorder F17.200 [address] [place] [address] [place] [address] 03/12/2024 Jenia Heavens Opioid use disorder F11.99 ; Obesity E66.9 and Tobacco use disorder F17.200 [address] [place] [address] [place] [address] 04/14/2024 Jenia Heavens Opioid use disorder F11.99 ; Obesity E66.9 and Tobacco use disorder F17.[address] [place] [address] 05/06/2024 Mary Kay Cueva Generalized anxiety disorder F41.1 ; Bipolar 1 disorder F31.9 and Sleep disturbance, unspecified G47.9 [facility] [address] [place] [address] 05/12/2024 Jenia Heaveeric Opioid use disorder F11.99 ; Nicotine dependence, unspecified, uncomplicated F17.200 and Obesity E66.9 [facility] [address] [place] [address] 06/16/2024 Jenia Heaveeric Opioid use disorder F11.99 ; Obesity E66.9 and Nicotine dependence, unspecified, uncomplicated F17.[address] [place] [address] 06/17/2024 Mary Kay Cueva Generalized anxiety disorder F41.1 ; Bipolar 1 disorder F31.9 and Sleep disturbance, unspecified G47.9 [facility] [place] [address] 07/16/2024 Jenia Heaveeric Opioid use disorder F11.99 ; Obesity E66.9 and Tobacco use disorder F17.200 [facility] [place] [address] 08/14/2024 Jenia Hejaya Opioid use disorder F11.99 ; Obesity E66.9 and Tobacco use disorder F17.200 [facility] [address] [place] [address] 09/08/2024 Mary Kay Cueva Over weight E66.3 ; Generalized anxiety disorder F41.1 ; Bipolar 1 disorder F31.9 and Sleep disturbance, unspecified G47.9 [facility] [address] [place] [address] 10/06/2024 Mary Kay Cueva Over weight E66.3 ; Generalized anxiety disorder F41.1 ; Bipolar 1 disorder F31.9 ; Sleep disturbance, unspecified G47.9 and Opioid use disorder F11.99 [facility] [address] [place] [address] 11/04/2024 Jenjacob Hejaya Opioid use disorder F11.99 ; Obesity E66.9 ; Pain, dental K08.89 and Nicotine dependence, unspecified, uncomplicated F17.[address] [place] [address] 11/11/2024 Mary Kay Cueva Over weight E66.3 ; Generalized anxiety disorder F41.1 ; Bipolar 1 disorder F31.9 ; Sleep disturbance, unspecified G47.9 and Opioid use disorder F11.[address] [place] [address] 11/22/2023 Ivelisse Roper [address] [place] [address] 11/22/2023 Ivelisse Roper [facility] [address] [place] [address] 11/28/2023 Ivelisse Roper Opioid use disorder F11.[address] [place] [address] 01/08/2024 Perez Luna Opioid use disorder F11.[address] [place] [address] 01/28/2024 Ivelisse Roper [address] [place] [address] 02/04/2024 Ivelisse Roper [facility] [address] [facility] [address] 03/05/2024 Ivelisse Roper Opioid use disorder F11.[address] [address] 04/09/2024 Ivelisse Roper [facility] [address] [place] [address] 04/13/2024 Ivelisse Roper Opioid use disorder F11.99 [facility] [address] [place] [address] 04/29/2024 Xochitl [address]os [address] [place] [address] 05/06/2024 Mary Kay Cueva [address] [place] [address] 05/08/2024 Mary Kay Cueva Generalized anxiety disorder F41.1 [facility] [address] [place] [address] 05/19/2024 Ivelisse Roper [facility] [address] [place] [address] 06/10/2024 Jenia Heavens Opioid use disorder F11.[address] [place] [address] 06/10/2024 Mary Kay Cueva [address] [place] [address] 06/15/2024 Mary Kay Cueva Generalized anxiety disorder F41.1 [facility] [address] [facility] [place] [address] 07/24/2024 Ivelisse Roper [address] [place] [address] 08/11/2024 Mary Kay Cueva Sleep disturbance, unspecified G47.9 and Generalized anxiety disorder F41.1 [facility] [place] [address] 08/14/2024 Ivelisse Hejaya Opioid use disorder F11.[address] [place] [address] 09/01/2024 Mary Kay Cueva Generalized anxiety disorder F41.1 [facility] [address] [place] [address] 09/11/2024 Mary Kay Cueva [facility] [place] [address] 09/15/2024 Mary Kay Cueva [facility] [address] [place] [address] 11/02/2024 Ivelisse Heaveeric Opioid use disorder F11.99 [facility] [address] [place] [address] 11/04/2024 Ivelisse Roper Opioid use disorder F11.99 [facility] [address] [place] [address] 11/12/2024 Ivelisse Roper [facility] [address] [place] [address] 03/11/2024 Ivelisse Roper Assessments Encounter Date Diagnosis (ICD Code) Assessment Notes Treatment Notes Treatment Clinical Notes Section Notes 10/06/2024 Over weight (ICD-10 - E66.3) 11/11/2024 Over weight (ICD-10 - E66.3) 11/04/2024 Opioid use disorder (ICD-10 - F11.99) 11/04/2024 Opioid use disorder (ICD-10 - F11.99) 11/02/2024 Opioid use disorder (ICD-10 - F11.99) 06/15/2024 Generalized anxiety disorder (ICD-10 - F41.1) 11/04/2024 Obesity (ICD-10 - E66.9) 03/12/2024 Opioid use disorder (ICD-10 - F11.99) 02/06/2024 Obesity (ICD-10 - E66.9) 02/06/2024 Opioid use disorder (ICD-10 - F11.99) 01/08/2024 Opioid use disorder (ICD-10 - F11.99) 11/28/2023 Opioid use disorder (ICD-10 - F11.99) 12/27/2023 Opioid use disorder (ICD-10 - F11.99) 05/12/2024 Opioid use disorder (ICD-10 - F11.99) 05/06/2024 Generalized anxiety disorder (ICD-10 - F41.1) Hx of clonazepam. Discussed that BZDs are not recommended by this porovider for [facility] use, will do short supply, 1 time fill, due to recent events and environmental stressors. Client v/u. Benzodiazepine use is intended for short-term use, Long-term use of benzos has been shown to lead to dependence, rebound anxiety/agitation, and withdrawal symptoms that include sleep disturbance, irritability, increased tension and anxiety, panic attacks, hand tremor, sweating, difficulty in concentration, dry retching, and nausea, some weight loss, palpitations, headache, muscular pain and stiffness, and a host of perceptual changes. Also Benzodiazepines are not recommended for long-term use due to potential dangerous side effects that include increased drowsiness, memory impairment, increased irritability, mood changes, and worsening of PTSD symptoms. Benzodiazepines can increase respiratory depression which can aggravate conditions such as sleep apnea and COPD leading to possible . They should also never be combined with alcohol, pain medications (especially opioids), or street drugs because this can lead to overdose and possible . If you are under the influence of benzodiazepines while operating a motor vehicle and are involved in a car accident you can be charged with driving while intoxicated. Benzodiazepine use can increase unsteady gait thereby increasing the risk of falls, broken bones, and concussions. 04/14/2024 Opioid use disorder (ICD-10 - F11.99) 04/13/2024 Opioid use disorder (ICD-10 - F11.99) 09/08/2024 Over weight (ICD-10 - E66.3) 08/14/2024 Opioid use disorder (ICD-10 - F11.99) 08/11/2024 Sleep disturbance, unspecified (ICD-10 - G47.9) 07/16/2024 Opioid use disorder (ICD-10 - F11.99) 06/17/2024 Generalized anxiety disorder (ICD-10 - F41.1) Will do fill while client is working on court case regarding her son as this has anxiety increased. PDMP checked, no concerns. Benzodiazepine use is intended for short-term use, Long-term use of benzos has been shown to lead to dependence, rebound anxiety/agitation, and withdrawal symptoms that include sleep disturbance, irritability, increased tension and anxiety, panic attacks, hand tremor, sweating, difficulty in concentration, dry retching, and nausea, some weight loss, palpitations, headache, muscular pain and stiffness, and a host of perceptual changes. Also Benzodiazepines are not recommended for long-term use due to potential dangerous side effects that include increased drowsiness, memory impairment, increased irritability, mood changes, and worsening of PTSD symptoms. Benzodiazepines can increase respiratory depression which can aggravate conditions such as sleep apnea and COPD leading to possible . They should also never be combined with alcohol, pain medications (especially opioids), or street drugs because this can lead to overdose and possible . If you are under the influence of benzodiazepines while operating a motor vehicle and are involved in a car accident you can be charged with driving while intoxicated. Benzodiazepine use can increase unsteady gait thereby increasing the risk of falls, broken bones, and concussions. 09/01/2024 Generalized anxiety disorder (ICD-10 - F41.1) 08/14/2024 Opioid use disorder (ICD-10 - F11.99) 06/16/2024 Obesity (ICD-10 - E66.9) 06/16/2024 Opioid use disorder (ICD-10 - F11.99) 06/10/2024 Opioid use disorder (ICD-10 - F11.99) 11/28/2023 Opioid use disorder (ICD-10 - F11.99) 05/08/2024 Generalized anxiety disorder (ICD-10 - F41.1) 03/05/2024 Opioid use disorder (ICD-10 - F11.99) 06/16/2024 Nicotine dependence, unspecified, uncomplicated (ICD-10 - F17.200) 06/17/2024 Bipolar 1 disorder (ICD-10 - F31.9) Discussed importance of taking medication daily. Client v/u and has plan to use pill organizer to help with taking. 07/16/2024 Obesity (ICD-10 - E66.9) 08/11/2024 Generalized anxiety disorder (ICD-10 - F41.1) 08/14/2024 Obesity (ICD-10 - E66.9) 09/08/2024 Generalized anxiety disorder (ICD-10 - F41.1) Will do fill while client is working on court case regarding her son as this has anxiety increased. PDMP checked, no concerns. Benzodiazepine use is intended for short-term use, Long-term use of benzos has been shown to lead to dependence, rebound anxiety/agitation, and withdrawal symptoms that include sleep disturbance, irritability, increased tension and anxiety, panic attacks, hand tremor, sweating, difficulty in concentration, dry retching, and nausea, some weight loss, palpitations, headache, muscular pain and stiffness, and a host of perceptual changes. Also Benzodiazepines are not recommended for long-term use due to potential dangerous side effects that include increased drowsiness, memory impairment, increased irritability, mood changes, and worsening of PTSD symptoms. Benzodiazepines can increase respiratory depression which can aggravate conditions such as sleep apnea and COPD leading to possible . They should also never be combined with alcohol, pain medications (especially opioids), or street drugs because this can lead to overdose and possible . If you are under the influence of benzodiazepines while operating a motor vehicle and are involved in a car accident you can be charged with driving while intoxicated. Benzodiazepine use can increase unsteady gait thereby increasing the risk of falls, broken bones, and concussions. 04/14/2024 Obesity (ICD-10 - E66.9) 05/06/2024 Bipolar 1 disorder (ICD-10 - F31.9) Discussed importance of taking medication daily. Client v/u and has plan to use pill organizer to help with taking. 05/12/2024 Nicotine dependence, unspecified, uncomplicated (ICD-10 - F17.200) 11/28/2023 Obesity (ICD-10 - E66.9) 12/27/2023 Obesity (ICD-10 - E66.9) 02/06/2024 Tobacco use disorder (ICD-10 - F17.200) 11/04/2024 Pain, dental (ICD-10 - K08.89) Encouraged to keep appointment with dentist scheduled on 11/26/2024. 03/12/2024 Obesity (ICD-10 - E66.9) 11/11/2024 Generalized anxiety disorder (ICD-10 - F41.1) Continue at this time PDMP checked, no concerns. Benzodiazepine use is intended for short-term use, Long-term use of benzos has been shown to lead to dependence, rebound anxiety/agitation, and withdrawal symptoms that include sleep disturbance, irritability, increased tension and anxiety, panic attacks, hand tremor, sweating, difficulty in concentration, dry retching, and nausea, some weight loss, palpitations, headache, muscular pain and stiffness, and a host of perceptual changes. Also Benzodiazepines are not recommended for long-term use due to potential dangerous side effects that include increased drowsiness, memory impairment, increased irritability, mood changes, and worsening of PTSD symptoms. Benzodiazepines can increase respiratory depression which can aggravate conditions such as sleep apnea and COPD leading to possible . They should also never be combined with alcohol, pain medications (especially opioids), or street drugs because this can lead to overdose and possible . If you are under the influence of benzodiazepines while operating a motor vehicle and are involved in a car accident you can be charged with driving while intoxicated. Benzodiazepine use can increase unsteady gait thereby increasing the risk of falls, broken bones, and concussions. 10/06/2024 Generalized anxiety disorder (ICD-10 - F41.1) Continue at this time PDMP checked, no concerns. Benzodiazepine use is intended for short-term use, Long-term use of benzos has been shown to lead to dependence, rebound anxiety/agitation, and withdrawal symptoms that include sleep disturbance, irritability, increased tension and anxiety, panic attacks, hand tremor, sweating, difficulty in concentration, dry retching, and nausea, some weight loss, palpitations, headache, muscular pain and stiffness, and a host of perceptual changes. Also Benzodiazepines are not recommended for long-term use due to potential dangerous side effects that include increased drowsiness, memory impairment, increased irritability, mood changes, and worsening of PTSD symptoms. Benzodiazepines can increase respiratory depression which can aggravate conditions such as sleep apnea and COPD leading to possible . They should also never be combined with alcohol, pain medications (especially opioids), or street drugs because this can lead to overdose and possible . If you are under the influence of benzodiazepines while operating a motor vehicle and are involved in a car accident you can be charged with driving while intoxicated. Benzodiazepine use can increase unsteady gait thereby increasing the risk of falls, broken bones, and concussions. 10/06/2024 Bipolar 1 disorder (ICD-10 - F31.9) Discussed importance of taking medication daily. Client v/u and has plan to use pill organizer to help with taking. 11/11/2024 Bipolar 1 disorder (ICD-10 - F31.9) Discussed importance of taking medication daily. Client v/u and has plan to use pill organizer to help with taking. 03/12/2024 Tobacco use disorder (ICD-10 - F17.200) 12/27/2023 Tobacco use disorder (ICD-10 - F17.200) 11/28/2023 Tobacco use disorder (ICD-10 - F17.200) 05/12/2024 Obesity (ICD-10 - E66.9) 05/06/2024 Sleep disturbance, unspecified (ICD-10 - G47.9) 04/14/2024 Tobacco use disorder (ICD-10 - F17.200) 09/08/2024 Bipolar 1 disorder (ICD-10 - F31.9) Discussed importance of taking medication daily. Client v/u and has plan to use pill organizer to help with taking. 08/14/2024 Tobacco use disorder (ICD-10 - F17.200) 07/16/2024 Tobacco use disorder (ICD-10 - F17.200) 06/17/2024 Sleep disturbance, unspecified (ICD-10 - G47.9) 11/04/2024 Nicotine dependence, unspecified, uncomplicated (ICD-10 - F17.200) 09/08/2024 Sleep disturbance, unspecified (ICD-10 - G47.9) 11/11/2024 Sleep disturbance, unspecified (ICD-10 - G47.9) 10/06/2024 Sleep disturbance, unspecified (ICD-10 - G47.9) 10/06/2024 Opioid use disorder (ICD-10 - F11.99) 11/11/2024 Opioid use disorder (ICD-10 - F11.99) Continue working with MAR. 11/28/2023 Other Patient agrees to take medication as prescribed. Discussed medication side effects, adverse effects, risks, benefits, as well as interactions. Encouraged non-use of opioids. Has naloxone. Recommended participation in recovery groups and/or counseling services. May contact office with questions or concerns. 12/27/2023 Other Patient agrees to take medication as prescribed. Discussed medication side effects, adverse effects, risks, benefits, as well as interactions. Encouraged non-use of opioids. Has naloxone. Recommended participation in recovery groups and/or counseling services. May contact office with questions or concerns. 02/06/2024 Other Client agrees to take medication as prescribed. Discussed medication side effects, adverse effects, risks, benefits, as well as interactions. Encouraged non-use of opioids. Has naloxone. Recommended participation in recovery groups/counseling services. May contact office with questions or concerns. 03/12/2024 Other Client agrees to take medication as prescribed. Discussed medication side effects, adverse effects, risks, benefits, as well as interactions. Encouraged non-use of opioids. Has naloxone. Recommended participation in recovery groups/counseling services. May contact office with questions or concerns. 04/14/2024 Other Discussed medication side effects, adverse effects, risks, benefits, as well as interactions. Encouraged non-use of opioids. Has naloxone. Recommended participation in recovery groups and/or counseling services. May contact office with questions or concerns. Patient may self-administe r their own medications or may self-administe r their own oral medications per [place] Protocol. 05/06/2024 Other Reasons, potential benefits, potential risks, interactions and side effects of all medications were discussed. The Patient/Guardian asked appropriate questions, appeared to understand the answers, and decided to accept the treatment and continue being followed. Alternatives and expected course without treatment were reviewed. The Patient/Guardian is aware of the need to contact the office or return for an earlier appointment if any problems or concerns arise. May also contact the 24-hour crisis hotline ([facility]), refer to the closest emergency room or call 911 if new symptoms arise of existing symptoms worsen. The Patient/Guardian is aware that this would apply to symptoms like: suicidal ideation, homicidal ideation, high risk behaviors, manic symptoms, psychotic symptoms, physical symptoms, or any other symptoms that may be dangerous to self or others. Greater than 50% of time spent on coordination and counseling where psychopharmacology as well as psychotherapeutic interventions were discussed along with review of treatments in the past. Education provided concerning need for adequate hydration. Patient/Guardian verbalized understanding of education, treatment plan and follow up. This session was completed telephonically with client/parental/guard lyndsey consent: Unable to determine movement status, assess appearance, affect, AIMS, or vital signs. 05/12/2024 Other Discussed medication side effects, adverse effects, risks, benefits, as well as interactions. Encouraged non-use of opioids. Has naloxone. Recommended participation in recovery groups and/or counseling services. May contact office with questions or concerns. Patient may self-administe r their own medications or may self-administe r their own oral medications per [facility]. 06/16/2024 Other Discussed medication side effects, adverse effects, risks, benefits, as well as interactions. Encouraged non-use of opioids. Has naloxone. Recommended participation in recovery groups and/or counseling services. May contact office with questions or concerns. Patient may self-administe r their own medications or may self-administe r their own oral medications per [place] [facility]. 06/17/2024 Other Reasons, potential benefits, potential risks, interactions and side effects of all medications were discussed. The Patient/Guardian asked appropriate questions, appeared to understand the answers, and decided to accept the treatment and continue being followed. Alternatives and expected course without treatment were reviewed. The Patient/Guardian is aware of the need to contact the office or return for an earlier appointment if any problems or concerns arise. May also contact the 24-hour crisis hotline ([facility]), refer to the closest emergency room or call 911 if new symptoms arise of existing symptoms worsen. The Patient/Guardian is aware that this would apply to symptoms like: suicidal ideation, homicidal ideation, high risk behaviors, manic symptoms, psychotic symptoms, physical symptoms, or any other symptoms that may be dangerous to self or others. Greater than 50% of time spent on coordination and counseling where psychopharmacology as well as psychotherapeutic interventions were discussed along with review of treatments in the past. Education provided concerning need for adequate hydration. Patient/Guardian verbalized understanding of education, treatment plan and follow up. This session was completed telephonically with client/parental/guard lyndsey consent: Unable to determine movement status, assess appearance, affect, AIMS, or vital signs. 07/16/2024 Other Discussed medication side effects, adverse effects, risks, benefits, as well as interactions. Encouraged non-use of opioids. Has naloxone. Recommended participation in recovery groups and/or counseling services. May contact office with questions or concerns. Patient may self-administe r their own medications or may self-administe r their own oral medications per [place] [facility]. 08/14/2024 Other Discussed medication side effects, adverse effects, risks, benefits, as well as interactions. Encouraged non-use of opioids. Has naloxone. Recommended participation in recovery groups and/or counseling services. May contact office with questions or concerns. Patient may self-administe r their own medications or may self-administe r their own oral medications per [place] [facility]. 09/08/2024 Other Reasons, potential benefits, potential risks, interactions and side effects of all medications were discussed. The Patient/Guardian asked appropriate questions, appeared to understand the answers, and decided to accept the treatment and continue being followed. Alternatives and expected course without treatment were reviewed. The Patient/Guardian is aware of the need to contact the office or return for an earlier appointment if any problems or concerns arise. May also contact the 24-hour crisis hotline ([facility]), refer to the closest emergency room or call 911 if new symptoms arise of existing symptoms worsen. The Patient/Guardian is aware that this would apply to symptoms like: suicidal ideation, homicidal ideation, high risk behaviors, manic symptoms, psychotic symptoms, physical symptoms, or any other symptoms that may be dangerous to self or others. Greater than 50% of time spent on coordination and counseling where psychopharmacology as well as psychotherapeutic interventions were discussed along with review of treatments in the past. Education provided concerning need for adequate hydration. Patient/Guardian verbalized understanding of education, treatment plan and follow up. 10/06/2024 Other Reasons, potential benefits, potential risks, interactions and side effects of all medications were discussed. The Patient/Guardian asked appropriate questions, appeared to understand the answers, and decided to accept the treatment and continue being followed. Alternatives and expected course without treatment were reviewed. The Patient/Guardian is aware of the need to contact the office or return for an earlier appointment if any problems or concerns arise. May also contact the 24-hour crisis hotline ([facility]), refer to the closest emergency room or call 911 if new symptoms arise of existing symptoms worsen. The Patient/Guardian is aware that this would apply to symptoms like: suicidal ideation, homicidal ideation, high risk behaviors, manic symptoms, psychotic symptoms, physical symptoms, or any other symptoms that may be dangerous to self or others. Greater than 50% of time spent on coordination and counseling where psychopharmacology as well as psychotherapeutic interventions were discussed along with review of treatments in the past. Education provided concerning need for adequate hydration. Patient/Guardian verbalized understanding of education, treatment plan and follow up. 11/04/2024 Other Patient agrees to take medication as prescribed. Discussed medication side effects, adverse effects, risks, benefits, as well as interactions. Encouraged non-use of opioids. Has naloxone. Recommended participation in recovery groups and/or counseling services. May contact office with questions or concerns. 11/11/2024 Other Reasons, potential benefits, potential risks, interactions and side effects of all medications were discussed. The Patient/Guardian asked appropriate questions, appeared to understand the answers, and decided to accept the treatment and continue being followed. Alternatives and expected course without treatment were reviewed. The Patient/Guardian is aware of the need to contact the office or return for an earlier appointment if any problems or concerns arise. May also contact the 24-hour crisis hotline ([facility]), refer to the closest emergency room or call 911 if new symptoms arise of existing symptoms worsen. The Patient/Guardian is aware that this would apply to symptoms like: suicidal ideation, homicidal ideation, high risk behaviors, manic symptoms, psychotic symptoms, physical symptoms, or any other symptoms that may be dangerous to self or others. Greater than 50% of time spent on coordination and counseling where psychopharmacology as well as psychotherapeutic interventions were discussed along with review of treatments in the past. Education provided concerning need for adequate hydration. Patient/Guardian verbalized understanding of education, treatment plan and follow up. This session was completed telephonically with client/parental/guard lyndsey consent: Unable to determine movement status, assess appearance, affect, AIMS, or vital signs. Plan Of Treatment No Information Insurance Providers Payer Name Payer Address Payer Phone Subscriber Number Group Number Insured Name Patient Relationship to Insured Coverage Start Date Coverage End Date MEDICAID [address] [place] [phone] [id number] Kishor Triana Self - patient is the insured 4 [employer] [address] [place] [address] [id number] Kishor Triana Self - patient is the insured 4 Medications Administered Medication Instructions Date of Administration Dosage Notes Brixadi (Weekly) 07/11/2023 128 mg Frye, Sommer D 07/11/2023 11:20 AM CDT >Given LUQ, tolerated well. Brixadi (Weekly) 08/07/2023 128 mg Frye, Sommer D 08/07/2023 09:10 AM CDT >Given RUQ SubQ, tolerated well. Brixadi (Weekly) 09/05/2023 128 mg Frye, Sommer D 09/05/2023 10:30 AM CDT >Given RLQ, tolerated well. Brixadi (Weekly) 10/03/2023 128 mg Frye, Sommer D 10/03/2023 10:50 AM CDT >Given SubQ LUQ, tolerated well. Brixadi (Weekly) 10/31/2023 128 mg Frye, Sommer D 10/31/2023 03:50 PM CDT >Given RUQ, tolerated well. Brixadi (Weekly) 11/28/2023 128 mg Frye, Sommer D 11/28/2023 03:45 PM CDT >Given RLQ Sub Q, tolerated well. Brixadi (Weekly) 12/27/2023 128 mg Frye, Sommer D 12/27/2023 04:21:27 PM PRODUCTION LEAD >Given RUQ subq, tolerated well. [facility] [id number] Brixadi (Weekly) 02/06/2024 128 mg Uday, Sommer D 02/06/2024 02:45 PM PRODUCTION LEAD >Given Subq RUQ, tolerated well. [facility]#[id number] Brixadi (Weekly) 03/12/2024 128 mg Richard-Helen Keith 03/12/2024 08:59:08 AM PRODUCTION LEAD > Subcutaneous injection administered in the RLQ. Patient tolerated the injection well. Brixadi (Weekly) 04/14/2024 128 mg Uday, Sommer D 04/14/2024 02:30 PM PRODUCTION LEAD >Given Subq LUQ, tolerated well. [facility]# [id number] Brixadi (Weekly) 05/12/2024 128 mg Uday, Sommer D 05/12/2024 12:01 PM CDT >Given Sub Q RLQ, tolerated well. [facility]# [id number]. Brixadi (Weekly) 06/16/2024 128 mg Helen Herman 06/16/2024 11:57:28 AM CDT >Subcutaneous injection administered in the RUQ. Patient tolerated the injection. Brixadi (Weekly) 07/16/2024 128 mg Pt. sorensen rated well. No questions or concerns at this time. Brixadi (Weekly) 08/14/2024 16 mg Brixadi (Weekly) 10/06/2024 128 mg Uday, Sommer D 10/06/2024 03:25 PM CDT >Given Subq RLQ, tolerated well. [facility]# [id number]. Brixadi (Weekly) 11/04/2024 128 mg Uday, Sommer D 11/04/2024 11:00 AM CDT >Given Subq LUQ, toelrated well. [facility]# [id number]. Medical (General) History Surgical History Surgery Date(Month/Year) removal of nail in foot as child wart removed on foot at age 7 gastric bypass 2002 multiple esophagus dilation 8536-3411 D & C 2005 multiple conizations [id number] 2010 Gallbladder removed 2022 TOTAL HYSTERECTOMY 2011 Hospitalization History Reason Date(Month/Year) age 13 child x3 x2 MH in [place]
[2024-11-14] MEDS: HYDROcodone/acetaminophen (*CRX) 5-325 MG TABLET 1 TAB PO (22:02)
== END 2024-11-14 22:06 | disposition home or self-care (01) ==
LOC: ANHED 21:48
PROVIDERS: Emergency Provider Emergency Medicine
DX: M79.671 Pain in right foot (principal); S92.351A Displaced fracture of fifth metatarsal bone, right foot, initial encounter for closed fracture; X58.XXXA Exposure to other specified factors, initial encounter; Z98.84 Bariatric surgery status
CPT/HCPCS: 99283; A9270